=== PATIENT | male | born 1965 | race African-American/Black ===

== ENCOUNTER 2018-11-18 17:24 | Emergency (ER) | payer SELFPAY ==
[2018-11-18] MEDS ORDERED: HYDROcodone/Acetaminophen 5/325 mg Tablet ONE (18:18)
[2018-11-18] MEDS ORDERED: Sulfameth/Trimethoprim DS 800-160mg TAB ONE (18:19)
== END 2018-11-18 18:23 | disposition home or self-care (01) ==
LOC: BURERS 17:24 → EDSEX 17:24 → BURERS 18:23
DX: L02.212 Cutaneous abscess of back [any part, except buttock and flank] (principal)
CPT/HCPCS: 10061; 87070; 87205

== ENCOUNTER 2018-11-20 09:37 | Emergency (ER) | payer SELFPAY ==
[2018-11-20] MEDS ORDERED: Sulfameth/Trimethoprim DS 800-160mg TAB ONE (10:18)
== END 2018-11-20 10:23 | disposition home or self-care (01) ==
LOC: BURERS 09:37
DX: Z48.817 Encounter for surgical aftercare following surgery on the skin and subcutaneous tissue (principal)
CPT/HCPCS: 99282

== ENCOUNTER 2018-11-22 08:51 | Emergency (ER) | payer SELFPAY | END 2018-11-22 09:37 | disposition home or self-care (01) | LOC: BURERS 08:51 | DX: Z48.817 Encounter for surgical aftercare following surgery on the skin and subcutaneous tissue (principal); Z79.1 Long term (current) use of non-steroidal anti-inflammatories (NSAID) | CPT/HCPCS: 99282 ==